=== PATIENT | female | born 1950 | race Caucasian/White ===

== ENCOUNTER 2016-07-20 10:31 | Emergency (ER) | payer OTHER, BC ==
[2016-07-20 10:57] VITALS: BP 181/84; PULSE 64; TEMP 98.7; BMI 23.6
[2016-07-20] MEDS ORDERED: ACETAMINOPHEN 325 MG TABLET (FP) PO ONE (12:06)
[2016-07-20] MEDS ORDERED: ACETAMINOPHEN 325 MG TABLET (FP) ONE (12:13)
--- NOTE | 2016-07-20 12:21 | PDOC ---
History of Present Illness - General Chief Complaint: Injury Stated Complaint: FALL, FACE INJURY, HEADACHES Time Seen by Provider: 07/20/16 11:34 History Source: Patient Exam Limitations: No Limitations - History of Present Illness Initial Comments: CHIEF COMPLAINT: 66 y/o afebrile female who underwent placement of 2 cardiac stents 2 weeks ago (now on ASA and anticoagulant) here with worsening dizziness and blurry vision s/p fall with head trauma. HISTORY OF PRESENT ILLNESS: The patient states she was in [place] 2 days ago. While holding a camera, she slipped and landed directly on her forehead. She states at the time she did not lose consciousness. She has had blurry vision and dizziness ever since, which seems to be worsening. She does admit her headache has improved. She denies LOC, neck pain, n/v/d, bleeding from nose or ears, CP, SOB, abd pain, back pain. She was recently put on daily aspirin and anticoagulant after having her stents placed. Vital signs on arrival are within normal limits. REVIEW OF SYSTEMS: GENERAL/CONSTITUTIONAL: No fever/chills. No weakness. No weight change. HEAD, EYES, EARS, NOSE AND THROAT: +blurry vision. No ear pain or discharge. No sore throat. CARDIOVASCULAR: No chest pain or shortness of breath. RESPIRATORY: No cough, wheezing, or hemoptysis. GASTROINTESTINAL: No abd pain, nausea, vomiting, diarrhea. GENITOURINARY: No dysuria, frequency, or change in urination. MUSCULOSKELETAL: No joint or muscle swelling or pain. No neck or back pain. SKIN: No rash or easy bruising. NEUROLOGIC: +headache. +dizziness. No loss of consciousness, or loss of sensation. PHYSICAL EXAM: GENERAL: The patient is awake, alert, and fully oriented, in no acute distress. She is ambulatory and in NAD. HEAD: 2cm hematoma that is TTP of left forehead. ENT: Pupils equal, round and reactive to light, extraocular movements intact, sclera anicteric, conjunctiva clear. No pain with EOMs. [place] eyes. No ptosis. No proptosis. No midline cervical spine TTP or step offs. FROM of cervical spine. No bleeding or dried blood in nose. LUNGS: Clear to auscultation bilaterally. Normal excursion. No respiratory distress or use of accessory muscles. CV: RRR, S1/S2, no MRG. Cap refill < 2 sec. ABDOMEN: Soft, non-distended, non-tender even to deep palpation, no hepatomegaly or splenomegaly, no masses. EXTREMITIES: Normal range of motion, no edema. NEUROLOGICAL: Normal speech, normal gait. CN II-XII grossly intact. PSYCH: Normal mood, normal affect. SKIN: Warm, dry, normal turgor, no rashes or lesions noted. Past History - Past Medical History Allergies/Adverse Reactions: Allergies Allergy/AdvReac Type Severity Reaction Status Date / Time No Known Allergies Allergy Verified 07/20/16 10:46 Home Medications: Ambulatory Orders Aspirin [ASA -] 81 mg PO DAILY 07/20/16 Atorvastatin Ca [Lipitor] 10 mg PO HS 07/20/16 Metoprolol Succinate [Toprol Xl -] 50 mg PO DAILY 07/20/16 Ticagrelor [Brilinta] 90 mg PO BID 07/20/16 Anemia: No Asthma: No Cancer: No Cardiac Disorders: Yes CVA: No COPD: No CHF: No Dementia: No Diabetes: No GI Disorders: Yes (GERD, CONSTIPATION, HEMORRHOIDS, IBS) Disorders: Yes (INCONTINENCE) HTN: No Hypercholesterolemia: Yes Liver Disease: No Seizures: No Thyroid Disease: No - Surgical History Abdominal Surgery: No Appendectomy: No Cardiac Surgery: No Cholecystectomy: No Lung Surgery: No Neurologic Surgery: No Orthopedic Surgery: Yes (EMRE KNEE REPLACEMENTS 2009) - Psycho/Social/Smoking Cessation Hx Suicidal Ideation: No Smoking History: Never smoked Have you smoked in the past 12 months: No Information on smoking cessation initiated: No Hx Alcohol Use: No Drug/Substance Use Hx: No Substance Use Type: None Hx Substance Use Treatment: No *Physical Exam - Vital Signs Last Vital Signs Temp Pulse Resp BP Pulse Ox 98.7 F 64 18 181/84 100 07/20/16 10:41 07/20/16 10:41 07/20/16 10:41 07/20/16 10:41 07/20/16 10:41 ED Treatment Course - RADIOLOGY Radiology Studies Ordered: Category Date Time Status HEAD CT WITHOUT CONTRAST [CT] Stat CT Scan 07/20/16 12:06 Ordered Medical Decision Making - Medical Decision Making A/P: 66 y/o female with head trauma 2 days ago with increased dizziness and blurry vision. SHe is on an aspirin and anticoagulant. Plan is as follows: 1. CT can head 2. PO tylenol Head CT IMPRESSION: No evidence of acute intracranial pathology. The patient remains well. Gave her results. Suggested she continue taking tylenol for pain at home if needed, follow up with her PCP and [employer] within 1 week and return to the ER with any worsening or concerning symptoms. The patient verbalizes understanding of all instructions, has no further questions and is awaiting discharge. *DC/Admit/Observation/Transfer Diagnosis at time of Disposition: Head trauma Qualifiers: Encounter type: initial encounter Qualified Code(s): S09.90XA - Unspecified injury of head, initial encounter Periorbital ecchymosis Qualifiers: Encounter type: initial encounter Laterality: unspecified laterality Qualified Code(s): S00.10XA - Contusion of unspecified eyelid and periocular area, initial encounter - Discharge Dispostion Disposition: HOME Condition at time of disposition: Good - Referrals Referrals: Marleny Alonso MD [Primary Care Provider] - Call tomorrow - Patient Instructions Printed Discharge Instructions: DI for Closed Head Injury Additional Instructions: Discharge Instructions: -Take tylenol for pain if needed -Please follow up with your Primary Care Physician and [employer] within 1 week -Return to the ER immediately with any worsening or concerning symptoms.
== END 2016-07-20 13:46 | disposition home or self-care (01) ==
LOC: JER 10:31
DX: S09.8XXA Other specified injuries of head, initial encounter (principal); S00.83XA Contusion of other part of head, initial encounter; Z95.5 Presence of coronary angioplasty implant and graft; Z79.01 Long term (current) use of anticoagulants; Z79.82 Long term (current) use of aspirin; W18.39XA Other fall on same level, initial encounter; Y93.89 Activity, other specified; Y92.89 Other specified places as the place of occurrence of the external cause; Y99.8 Other external cause status
CPT/HCPCS: 70450-TC; 99282-25

== ENCOUNTER 2016-09-08 13:48 | Emergency (ER) | payer OTHER, BC ==
[2016-09-08 13:56] VITALS: BP 159/74; PULSE 68; TEMP 97.6; BMI 24.0
--- NOTE | 2016-09-08 14:24 | PDOC ---
History of Present Illness - General Chief Complaint: Pain, Acute Stated Complaint: HIP PAIN Time Seen by Provider: 09/08/16 14:00 History Source: Patient Exam Limitations: No Limitations - History of Present Illness Initial Comments: CHIEF COMPLAINT: 66 y/o afebrile female with PMH HTN, HLD, ACD (2 stents placed in 07/03 on Plavix) c/o atraumatic left hip pain today. HISTORY OF PRESENT ILLNESS: The patient states she woke up with left hip pain. She is able to walk but only if holding on to things. She denies trauma, fall , f/c, n/v/d, CP, SOB, abd pain, back pain, hematuria, dysuria, numbness/ tingling in extremities, saddle anesthesia. Vital signs on arrival are within normal limits. REVIEW OF SYSTEMS: GENERAL/CONSTITUTIONAL: No fever/chills. No weakness. No weight change. HEAD, EYES, EARS, NOSE AND THROAT: No change in vision. No ear pain or discharge. No sore throat. CARDIOVASCULAR: No chest pain or shortness of breath. RESPIRATORY: No cough, wheezing, or hemoptysis. GASTROINTESTINAL: No abd pain, nausea, vomiting, diarrhea. GENITOURINARY: No dysuria, frequency, or change in urination. MUSCULOSKELETAL: +left hip pain. No neck or back pain. SKIN: No rash or easy bruising. NEUROLOGIC: No headache, vertigo, loss of consciousness, or loss of sensation. PHYSICAL EXAM: GENERAL: The patient is awake, alert, and fully oriented, in no acute distress. HEAD: Normal with no signs of trauma.. ABDOMEN: Soft, non-distended, non-tender even to deep palpation, no hepatomegaly or splenomegaly, no masses. EXTREMITIES: No edema. No TTP of left hip joint, left upper leg or left pelvic region. Can passively range patient's left hip and pain is elicited with abduction, adduction and flexion. No leg length discrepancy. NEUROLOGICAL: Normal speech, normal gait. CN II-XII grossly intact. No saddle anesthesia PSYCH: Normal mood, normal affect. SKIN: Warm, dry, normal turgor, no rashes or lesions noted. Past History - Past Medical History Allergies/Adverse Reactions: Allergies Allergy/AdvReac Type Severity Reaction Status Date / Time No Known Allergies Allergy Verified 09/08/16 13:56 Home Medications: Ambulatory Orders Aspirin [ASA -] 81 mg PO DAILY 07/20/16 Atorvastatin Ca [Lipitor] 10 mg PO HS 07/20/16 Metoprolol Succinate [Toprol Xl -] 50 mg PO DAILY 07/20/16 Ticagrelor [Brilinta] 90 mg PO BID 07/20/16 Anemia: No Asthma: No Cancer: No Cardiac Disorders: Yes (STENTS) CVA: No COPD: No CHF: No Dementia: No Diabetes: No GI Disorders: Yes (GERD, CONSTIPATION, HEMORRHOIDS, IBS) Disorders: Yes (INCONTINENCE) HTN: Yes Hypercholesterolemia: Yes Liver Disease: No Seizures: No Thyroid Disease: No - Surgical History Abdominal Surgery: No Appendectomy: No Cardiac Surgery: Yes (CARDIAC STENTS X 2) Cholecystectomy: No Lung Surgery: No Neurologic Surgery: No Orthopedic Surgery: Yes (EMRE KNEE REPLACEMENTS 2009) - Psycho/Social/Smoking Cessation Hx Suicidal Ideation: No Smoking History: Never smoked Have you smoked in the past 12 months: No Hx Alcohol Use: No Drug/Substance Use Hx: No Substance Use Type: None Hx Substance Use Treatment: No *Physical Exam - Vital Signs Last Vital Signs Temp Pulse Resp BP Pulse Ox 97.6 F 68 18 159/74 98 09/08/16 13:52 09/08/16 13:52 09/08/16 13:52 09/08/16 13:52 09/08/16 13:52 Medical Decision Making - Medical Decision Making A/P: 66 y/o afebrile female with atraumatic left hip pain since this morning. Plan is as follows: 1. Xray left hip/pelvis Xray left hip/pelvis IMPRESSION: Cortical disruption is seen in the medial aspect of the left inferior pubic ramus on AP views of the pelvis/left hip. Not seen on the oblique view of the left hip. Will send for pelvis CT. Pelvis CT IMPRESSION: Previously seen fracture on xray of the left inferior pubic ramus is not seen on CT Gave the patient her results. Suggested possible muscle strain Gave 650mg Tylenol in the ER. Suggested she stretch, apply ice, take tylenol and f/u with her Orthopedic doctor within 1 week. Pt instructed to return to the ER with any worsening or concerning symptoms. The patient verbalizes understanding of all instructions, has no further questions and is awaiting discharge. *DC/Admit/Observation/Transfer Diagnosis at time of Disposition: Strain of left hip Qualifiers: Encounter type: initial encounter Qualified Code(s): S76.012A - Strain of muscle, fascia and tendon of left hip, initial encounter - Discharge Dispostion Disposition: HOME Condition at time of disposition: Good - Patient Instructions Printed Discharge Instructions: DI for Groin Strain, How To Perform RICE (Rest , Ice, Compress, Elevate) Additional Instructions: Discharge Instructions: -Take tylenol for pain -Follow RICE instructions -Stretch your affected area multiple times per day -Follow up with your Orthopedic doctor within 1 week -Return to the ER with any worsening or concerning symptoms.
[2016-09-08] MEDS ORDERED: ACETAMINOPHEN 325 MG TABLET (FP) ONE (18:44)
[2016-09-08] MEDS ORDERED: ACETAMINOPHEN 325 MG TABLET (FP) PO ONE (18:45)
== END 2016-09-08 19:29 | disposition home or self-care (01) ==
LOC: JERFT 13:48
DX: S76.012A Strain of muscle, fascia and tendon of left hip, initial encounter (principal); I25.10 Atherosclerotic heart disease of native coronary artery without angina pectoris; Z95.5 Presence of coronary angioplasty implant and graft; I10 Essential (primary) hypertension; E78.00 Pure hypercholesterolemia, unspecified
CPT/HCPCS: 72192-TC; 73523-TC; 99281-25

== ENCOUNTER 2016-11-11 06:48 | Day surgery (SDC) | payer OTHER, BC ==
[2016-11-06 12:16] VITALS: BMI 25.1
[2016-11-11] MEDS ORDERED: LIDOCAINE 1% P/F 10 MG/ML VIAL ONE (07:07)
[2016-11-11] MEDS ORDERED: TETRACAINE 0.5% OPHTH SOLN 2 ML BOTTLE ONE (07:07)
[2016-11-11] MEDS ORDERED: BSS (NA/CA/MG/K) BALANCED SALT SOLUTION OPHTH SOLN 15 ML BOTTLE ONE (07:07)
[2016-11-11] MEDS ORDERED: CARBACHOL 0.01% INTRA-OCULAR 1.5 ML VIAL ONE (07:08)
[2016-11-11] MEDS ORDERED: LIDOCAINE HCL 2% JELLY 10 ML CARTRIDGE ONE (07:08)
[2016-11-11] MEDS ORDERED: NEO/POLYMYX B SULF/DEXAMETH OPHTHALMIC 5ML BOTTLE ONE (07:08)
[2016-11-11] MEDS: TROPICAMIDE 1% OPHTH SOLN 15 ML BOTTLE ONE ×3 (07:25→07:35)
[2016-11-11] MEDS: CYCLOPENTOLATE 2% OPHTH SOLN 2 ML BOTTLE ONE ×3 (07:25→07:35)
[2016-11-11] MEDS: PHENYLEPHRINE 2.5% OPHTH SOLN 15 ML BOTTLE ONE ×3 (07:25→07:35)
[2016-11-11] MEDS: CIPROFLOXACIN 0.3% EYE DROPS 5 ML BOTTLE ONE ×3 (07:25→07:35)
[2016-11-11] MEDS ORDERED: MIDAZOLAM HCL 2 MG/2 ML SINGLE DOSE VIAL ONE (08:12)
[2016-11-11 09:43] VITALS: BP 124/65; PULSE 66; TEMP 98.2
--- NOTE | 2016-11-11 20:24 | OP ---
DATE OF OPERATION: 11/11/2016 PROCEDURE: Cataract extraction of the left eye. OPERATIVE PROCEDURE: Lens phacoemulsification with posterior chamber intraocular lens placement left eye. PREOPERATIVE DIAGNOSIS: Visually significant cataract of left eye. POSTOPERATIVE DIAGNOSIS: Visually significant cataract of left eye. SURGEON: Jozef Guan M.D. ANESTHESIA: MAC ANESTHESIOLOGIST: PROCEDURE: The patient was brought to the operating room and placed under monitored anesthesia care by Anesthesia. A drop of Tetracaine was then placed over the left eye. The patient was then prepped and draped in the usual sterile manner. A speculum was then placed over the left eye. The eye was then well irrigated with copious amounts of BSS (balanced salt solution). The operating microscope was then moved into position. A paracentesis was performed using a 15 degree blade. At this point 0.5 mL of 1% preservative-free lidocaine was injected into the anterior chamber. Amvisc plus was then injected into the anterior chamber. A clear corneal incision was then formed using a 2.2 mm keratome. A capsulorrhexis was then performed in a continuous circular fashion beginning with a cystotome, completed with an Utratas forceps. Hydrodissection was then performed using BSS on a cannula. The phaco probe was then introduced through the corneal wound and the cataract was removed using the phaco chop technique. Approximately 3 seconds of absolute phaco time was used. The remaining cortex was then removed using irrigation and aspiration with an I/A probe. The capsule was then filled with regular Amvisc and the capsule was noted to be intact. A previously selected foldable posterior chamber intraocular lens was then injected into the capsule through the corneal wound using a lens injector. It was then dialed into position using a Sins[place] hook. The Amvisc was then removed using irrigation and aspiration. Miostat was then injected through the paracentesis to constrict the pupil. The paracentesis and corneal wound were then hydrated and noted to be water tight. A drop of Maxitrol was then placed over the eye. The speculum was removed and clear shield was taped over the eye. The patient tolerated the procedure well and there were no surgical complications. The patient was asked to follow up in my office the next day. JOZEF GUAN M.D. [place]/[id number]
== END 2016-11-11 10:00 | disposition home or self-care (01) ==
LOC: FASU 06:48
PROVIDERS: ATTEND Ophthalmology
PROC: 08RK3JZ Replacement of Left Lens with Synthetic Substitute, Percutaneous Approach (ICD-10-PCS; principal; 2016-11-11 08:29)
DX: H26.8 Other specified cataract (principal)

== ENCOUNTER 2017-07-21 09:32 | Day surgery (SDC) | payer OTHER, BC ==
[2017-07-15 13:14] VITALS: BMI 23.6
[2017-07-21] MEDS: PHENYLEPHRINE 2.5% OPHTH SOLN 15 ML BOTTLE ONE ×3 (10:20→10:30)
[2017-07-21] MEDS: TROPICAMIDE 1% OPHTH SOLN 15 ML BOTTLE ONE ×3 (10:20→10:30)
[2017-07-21] MEDS: CYCLOPENTOLATE 2% OPHTH SOLN 2 ML BOTTLE ONE ×3 (10:20→10:30)
[2017-07-21] MEDS: CIPROFLOXACIN 0.3% EYE DROPS 5 ML BOTTLE ONE ×3 (10:20→10:30)
[2017-07-21] MEDS ORDERED: CARBACHOL 0.01% INTRA-OCULAR 1.5 ML VIAL ONE (10:39)
[2017-07-21] MEDS ORDERED: BSS (NA/CA/MG/K) BALANCED SALT SOLUTION OPHTH SOLN 15 ML BOTTLE ONE (10:39)
[2017-07-21] MEDS ORDERED: MIDAZOLAM HCL 2 MG/2 ML SINGLE DOSE VIAL ONE (11:10)
[2017-07-21 12:06] VITALS: TEMP 98.1
[2017-07-21 12:34] VITALS: BP 139/70; PULSE 84
--- NOTE | 2017-07-21 13:53 | OP ---
DATE OF OPERATION: 07/21/2017 OPERATIVE PROCEDURE: Lens Phacoemulsification with Posterior Chamber Intraocular Lens Placement, Right Eye PREOPERATIVE DIAGNOSIS: Visually Significant Cataract of Right Eye POSTOPERATIVE DIAGNOSIS: Visually Significant Cataract of Right Eye SURGEON: Jozef Guan M.D. ANESTHESIA: MAC ANESTHESIOLOGIST: PROCEDURE: The patient was brought to the operating room and placed under monitored anesthesia care by Anesthesia. A drop of Tetracaine was then placed over the right eye. The patient was then prepped and draped in the usual sterile manner. A speculum was then placed over the right eye. The eye was then well irrigated with copious amounts of BSS (balanced salt solution). The operating microscope was then moved into position. A paracentesis was performed using a 15 degree blade. At this point 0.5 mL of 1% preservative free-lidocaine was injected into the anterior chamber. Amvisc plus was then injected into the anterior chamber. A clear corneal incision was then formed using a 2.2 mm keratome. A capsulorrhexis was then performed in a continuous circular fashion beginning with a cystotome completed with an Utratas forceps. Hydrodissection was then performed using BSS on a cannula. The phaco probe was then introduced through the corneal wound and the cataract was removed using the phaco chop technique. Approximately 3 seconds of absolute phaco time was used. The remaining cortex was then removed using irrigation and aspiration with an I/A probe. The capsule was then filled with regular Amvisc and the capsule was noted to be intact. A previously selected foldable posterior chamber intraocular lens was then injected into the capsule through the corneal wound using a lens injector. It was then dialed into position using a Sinskey hook. The Amvisc was then removed using irrigation and aspiration. Miostat was then injected through the paracentesis to constrict the pupil. The paracentesis and corneal wound were then hydrated and noted to be water tight. A drop of Maxitrol was then placed over the eye. The speculum was removed and clear shield was taped over the eye. The patient tolerated the procedure well and there were no surgical complications. The patient was asked to follow up in my office the next day. * JOZEF GUAN M.D. ND/[id number]
== END 2017-07-21 12:35 | disposition home or self-care (01) ==
LOC: FASU 09:32
PROVIDERS: ATTEND Ophthalmology
PROC: 08RJ3JZ Replacement of Right Lens with Synthetic Substitute, Percutaneous Approach (ICD-10-PCS; principal; 2017-07-21 11:28)
DX: H26.8 Other specified cataract (principal)